=== PATIENT | female | born 2000 | race African-American/Black ===

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

== ENCOUNTER 2022-06-08 17:40 | Emergency (ER) | payer OTHER ==
[2022-06-08] MEDS ORDERED: Mag-Al Plus 1200 MG/1200 MG/120 MG/30 ML UDCUP ONE (18:17)
== END 2022-06-08 18:19 | disposition home or self-care (01) ==
LOC: BURERS 17:40
DX: K21.9 Gastro-esophageal reflux disease without esophagitis (principal)
CPT/HCPCS: 99283

== ENCOUNTER 2025-03-31 15:41 | Emergency (ER) | payer MEDICAID, OTHER ==
[2025-03-31] MEDS ORDERED: Acetaminophen 325 MG TAB ONE (15:58)
== END 2025-03-31 16:28 | disposition home or self-care (01) ==
LOC: BURERS 15:41
DX: O99.612 Diseases of the digestive system complicating pregnancy, second trimester (principal); K08.89 Other specified disorders of teeth and supporting structures; K02.9 Dental caries, unspecified; Z3A.21 21 weeks gestation of pregnancy
CPT/HCPCS: 99282